=== PATIENT | female | born 2000 | race Caucasian/White ===

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

== ENCOUNTER 2020-01-19 14:55 | Emergency (ER) | payer MEDICAID ==
[~2020-01-19] VITALS: Ht 144.8 cm; Wt 65.0 kg
[2020-01-19 15:06] VITALS: BP 112/70
--- NOTE | 2020-01-19 15:21 | NUR ---
THIS IS A 19 YO F BIB [facility] AND [employer] FOR SA/SI. PT HAS MULTIPLE SUPERFICIAL LACERATIONS ON BILAT FOREARMS AND ABD. PT REPORTS SHE WAS NOT INVITED TO A FAMILY EVENT YESTERDAY WHICH TRIGGERED HER SI. PT LACERATED ARMS AND ABD THEN WENT TO WORK, WAS EMOTIONAL AT WORK SO THEY CALLED AMBULANCE. PT REPORTS LAST SA WAS 4 YEARS AGO IN WHICH SHE USED PILLS. PT DENIES CURRENT MEDS. PT RESTING ON [employer] W/ CALL LIGHT IN REACH, RESP EVEN AND UNLABORED, NADN. BELONGS REMOVED FROM PT AND PLACED IN SAFETY LOCKER. PT CHANGED INTO GOWN, GARAGE DOORS DOWN. SITTER OUTSIDE OF ROOM.
[2020-01-19 15:31] LABS: BASOPHILS # (AUTO) 0.02 x10^3/uL (0-0.3); BASOPHILS % (AUTO) 0 % (0-1); EOSINOPHILS # (AUTO) 0.05 x10^3/uL (0-0.8); EOSINOPHILS % (AUTO) 1 % (1-7); LYMPHOCYTES # (AUTO) 1.23 x10^3/uL (1-6.1); LYMPHOCYTES % (AUTO) 21 % (22-44); MD NO; MEAN CORPUSCULAR HEMOGLOBIN 31.8 pg (27.0-34.8); MEAN CORPUSCULAR VOLUME 93.3 fL (80-100); MEAN PLATELET VOLUME 8.3 fL (7.4-10.4); MONOCYTES # (AUTO) 0.33 x10^3/uL (0-1.4); MONOCYTES % (AUTO) 6 % (2-9); NEUTROPHILS # (AUTO) 4.13 x10^3/uL (1.8-8.0); NEUTROPHILS % (AUTO) 72 % (42-75); PLATELET COUNT 240 x10^3/uL (130-400); RED BLOOD COUNT 4.79 x10^6/uL (3.82-5.3); RED CELL DISTRIBUTION WIDTH 12.3 % (9.6-15.2)
[2020-01-19 15:44] LABS: ALBUMIN 4.1 g/dL (3.4-5.0); ANION GAP 8 mmol/L (5-15); CALCIUM 9.4 mg/dL (8.5-10.1); CHLORIDE 111 mmol/L (98-107); CREATININE 0.85 mg/dL (0.55-1.02)
[2020-01-19] MEDS ORDERED: NEOSPORIN OINT. PKT 1 PACKET ONE (15:44)
--- NOTE | 2020-01-19 15:46 | NUR ---
BRITT MCMANUS AT BEDSIDE.
[2020-01-19 15:49] LABS: SALICYLATE LEVEL < 1.7 mg/dL (2.8-20.0)
--- NOTE | 2020-01-19 15:53 | NUR ---
SAFETY MEAL TRAY PROVIDED FOR PATIENT.
[2020-01-19] MEDS ORDERED: DIPH,PERTUSS(ACELL),TET VAC/PF 0.5 ML IM-VACC ONE ×2 (16:00→16:44)
[2020-01-19 16:35] LABS: AMPHETAMINE SCREEN, URINE Negative (Negative); BARBITURATE SCREEN, URINE Negative (Negative); BENZODIAZEPINE SCREEN, URINE Negative (Negative); CANNABINOID SCREEN, URINE Positive (Negative); COCAINE SCREEN, URINE Negative (Negative); METHADONE SCREEN, URINE Negative (Negative); OPIATE SCREEN, URINE Negative (Negative)
--- NOTE | 2020-01-19 17:00 | NUR ---
PT RESTING ON GURNEY W/ FATHER AT BEDSIDE. RESP EVEN AND UNLABORED. NADN. AWAITING ADMIT.
--- NOTE | 2020-01-19 18:11 | NUR ---
PT RESTING ON GURNEY W/ FATHER AT BEDSIDE. SITTER OUTSIDE ROOM, GARAGE DOORS DOWN. RESP EVEN AND UNLABORED, NADN. AWAITING ADMIT.
--- NOTE | 2020-01-19 19:24 | NUR ---
pt resting on brandon, dad at her side, denies suicidal thoughts at this time, provided pt with ice chips per her request, denies further needs, room secured, sitter at doorway for continous monitoring
--- NOTE | 2020-01-19 20:06 | NUR ---
pt to be assisted to [facility], belongings bag x1 transferred with pt
== END 2020-01-19 20:09 | disposition home or self-care (01) ==
LOC: ED 15:43
DX: S51.819A Laceration without foreign body of unspecified forearm, initial encounter (principal); S31.119A Laceration without foreign body of abdominal wall, unspecified quadrant without penetration into peritoneal cavity, initial encounter; R45.851 Suicidal ideations; F32.9 Major depressive disorder, single episode, unspecified; Y33.XXXA Other specified events, undetermined intent, initial encounter; Y93.89 Activity, other specified; Y92.89 Other specified places as the place of occurrence of the external cause; Y99.8 Other external cause status
CPT/HCPCS: 36415; 80048; 80307; 82040; 84703; 85025; 90471; 90715; 99283; 99284

== ENCOUNTER 2020-01-19 16:50 | Inpatient (IN) | payer MEDICAID ==
[~2020-01-19] VITALS: Ht 144.8 cm; Wt 66.8 kg
[2020-01-19 20:00] VITALS: BP_SYST 111; BP_SYST 112; BP_DIAS 75; BP_DIAS 82
[2020-01-19] MEDS ORDERED: POLYETHYLENE GLYCOL 17 GM PACKET PO PRN (20:00)
[2020-01-19] MEDS ORDERED: BISACODYL 10 MG SUPP PR PRN (20:00)
[2020-01-19] MEDS ORDERED: DOCUSATE 100 MG CAPSULE PO PRN (20:00)
[2020-01-19] MEDS ORDERED: ONDANSETRON ODT 4 MG PO PRN (20:00)
[2020-01-19 20:30] LABS: ALBUMIN 4.1 g/dL (3.4-5.0); BILIRUBIN, DIRECT 0.2 mg/dL (0.1-0.2)
[2020-01-19] MEDS ORDERED: PLEASE ENTER HEIGHT AND WEIGHT MC SCH (20:30)
[2020-01-19 20:56] LABS: BILIRUBIN,INDIRECT 0.5 mg/dL (0.0-2.0); BILIRUBIN,TOTAL 0.7 mg/dL (0.2-1.0); CHOL/HDL RATIO 3.3; FREE T4 (FREE THYROXINE) 1.14 ng/dL (0.76-1.46); TOTAL PROTEIN 7.8 g/dL (6.4-8.2)
[2020-01-19 21:33] LABS: MICROSCOPIC INDICATED
[2020-01-19] MEDS: ACETAMINOPHEN 325 MG TABLET PO PRN (21:44)
[2020-01-20 00:10] VITALS: BP 111/75
[2020-01-20 07:55] VITALS: BP 94/65
[2020-01-20] MEDS: SERTRALINE 50MG TABLET PO SCH (18:08)
[2020-01-20 19:15] VITALS: BP_SYST 100; BP_SYST 180; BP_DIAS 64; BP_DIAS 69
[2020-01-20] MEDS: CARBAMAZEPINE 200 MG TABLET PO SCH (20:46)
[2020-01-20] MEDS: ACETAMINOPHEN 325 MG TABLET PO PRN (20:46)
[2020-01-21 07:00] VITALS: BP 110/73
[2020-01-21] MEDS: SERTRALINE 50MG TABLET PO SCH (09:05)
[2020-01-21 19:40] VITALS: BP 100/66
[2020-01-21] MEDS: ACETAMINOPHEN 325 MG TABLET PO PRN (20:58)
[2020-01-21] MEDS: CARBAMAZEPINE 200 MG TABLET PO SCH (20:58)
[2020-01-22 07:00] VITALS: BP 114/73
[2020-01-22] MEDS: SERTRALINE 50MG TABLET PO SCH (09:20)
[2020-01-22] MEDS: ACETAMINOPHEN 325 MG TABLET PO PRN (18:07)
[2020-01-22 20:00] VITALS: BP 105/70
[2020-01-22] MEDS: CARBAMAZEPINE 200 MG TABLET PO SCH (20:48)
[2020-01-23 07:40] VITALS: BP 114/75
[2020-01-23] MEDS: SERTRALINE 50MG TABLET PO SCH (08:26)
[2020-01-23 19:26] VITALS: BP 107/72
[2020-01-23] MEDS: CARBAMAZEPINE 200 MG TABLET PO SCH (20:20)
[2020-01-23 21:04] VITALS: BP 110/65
[2020-01-23 21:20] VITALS: BP 102/71
[2020-01-23 21:27] VITALS: BP 102/71
[2020-01-23] MEDS: ACETAMINOPHEN 325 MG TABLET PO PRN (21:29)
[2020-01-23 22:34] VITALS: BP 109/74
--- NOTE | 2020-01-23 22:49 | NUR ---
[place] GONZALEZ - Fall Risk Medications present and NOT receiving anticoagulants.
[2020-01-24 07:41] VITALS: BP 103/69
[2020-01-24] MEDS: ACETAMINOPHEN 325 MG TABLET PO PRN (08:46)
[2020-01-24] MEDS: hydrOXyzine 10MG TABLET PO PRN ×2 (08:46→16:36)
[2020-01-24] MEDS: SERTRALINE 50MG TABLET PO SCH (08:46)
[2020-01-24 19:15] VITALS: BP 107/72
[2020-01-24] MEDS: CARBAMAZEPINE 200 MG TABLET PO SCH (20:29)
[2020-01-25 07:25] VITALS: BP 106/70
[2020-01-25] MEDS: SERTRALINE 50MG TABLET PO SCH (08:26)
[2020-01-25] MEDS: hydrOXyzine 10MG TABLET PO PRN ×2 (08:26→20:36)
[2020-01-25] MEDS ORDERED: HYDR-2995 PO (13:49)
[2020-01-25] MEDS ORDERED: SERT50TA28 PO (13:49)
[2020-01-25] MEDS ORDERED: CARB200T4 PO (13:49)
[2020-01-25 19:15] VITALS: BP 97/68
[2020-01-25] MEDS: CARBAMAZEPINE 200 MG TABLET PO SCH (20:36)
[2020-01-26 07:43] VITALS: BP 107/71
[2020-01-26] MEDS: ACETAMINOPHEN 325 MG TABLET PO PRN (08:55)
[2020-01-26] MEDS: SERTRALINE 50MG TABLET PO SCH (08:55)
[2020-01-26] MEDS: hydrOXyzine 10MG TABLET PO PRN (09:08)
== END 2020-01-26 12:58 | disposition home or self-care (01) | DRG 753 ==
LOC: 3E 20:17
PROVIDERS: ADMIT Psychiatry & Neurology Psychosomatic Medicine; ATTEND Psychiatry & Neurology Psychosomatic Medicine
DX: F31.60 Bipolar disorder, current episode mixed, unspecified (principal); E66.9 Obesity, unspecified; F12.10 Cannabis abuse, uncomplicated; F63.9 Impulse disorder, unspecified; F90.9 Attention-deficit hyperactivity disorder, unspecified type; Z63.9 Problem related to primary support group, unspecified; Z82.0 Family history of epilepsy and other diseases of the nervous system; Z91.5 Personal history of self-harm; Z68.31 Body mass index [BMI] 31.0-31.9, adult; Z79.899 Other long term (current) drug therapy
CPT/HCPCS: 36415; 71045; 80048; 80061; 80076; 80307; 81001; 82040; 82607; 84439; 84443; 84703; 85025; 87086; 90471; 90715; 93005; 99283

== ENCOUNTER 2020-02-24 21:27 | Emergency (ER) | payer MEDICAID ==
[~2020-02-24] VITALS: Ht 144.8 cm; Wt 67.9 kg
[~2020-02-24 21:27] MED LIST changes: +CARB200T4 PO; +HYDR-2995 PO; +SERT50TA28 PO
--- NOTE | 2020-02-24 22:10 | NUR ---
Patient presents to ER c/o cough, fever, and congestion x2 weeks. Patient also c/o LLQ abd pain that started today. Denies N/V/D. LMP 02/19/20. Patient is in NAD. Respirations even and unlabored.
[2020-02-24 22:15] LABS: MICROSCOPIC INDICATED
[2020-02-24 22:30] LABS: BASOPHILS # (AUTO) 0.01 x10^3/uL (0-0.3); BASOPHILS % (AUTO) 0 % (0-1); EOSINOPHILS # (AUTO) 0.14 x10^3/uL (0-0.8); EOSINOPHILS % (AUTO) 1 % (1-7); LYMPHOCYTES # (AUTO) 1.36 x10^3/uL (1-6.1); LYMPHOCYTES % (AUTO) 13 % (22-44); MD NO; MEAN CORPUSCULAR HEMOGLOBIN 30.7 pg (27.0-34.8); MEAN CORPUSCULAR HGB CONC 33.7 g/dL (32.4-35.8); MEAN CORPUSCULAR VOLUME 91.1 fL (80-100); MEAN PLATELET VOLUME 8.2 fL (7.4-10.4); MONOCYTES # (AUTO) 0.84 x10^3/uL (0-1.4); MONOCYTES % (AUTO) 8 % (2-9); NEUTROPHILS # (AUTO) 8.07 x10^3/uL (1.8-8.0); NEUTROPHILS % (AUTO) 77 % (42-75); PLATELET COUNT 245 x10^3/uL (130-400); RED BLOOD COUNT 4.52 x10^6/uL (3.82-5.3); RED CELL DISTRIBUTION WIDTH 12.4 % (9.6-15.2)
[2020-02-24 22:38] LABS: ALBUMIN 3.5 g/dL (3.4-5.0); ANION GAP 4 mmol/L (5-15); CALCIUM 8.9 mg/dL (8.5-10.1); CHLORIDE 106 mmol/L (98-107)
[2020-02-24 22:44] LABS: ALANINE AMINOTRANSFERASE 19 U/L (12-78); ALKALINE PHOSPHATASE 68 U/L (45-117); BILIRUBIN,TOTAL 0.4 mg/dL (0.2-1.0); CREATININE 1.11 mg/dL (0.55-1.02); TOTAL PROTEIN 7.6 g/dL (6.4-8.2)
[2020-02-24 23:14] VITALS: BP 116/67
== END 2020-02-24 23:15 | disposition home or self-care (01) ==
LOC: ED 21:45
DX: N30.00 Acute cystitis without hematuria (principal); R10.32 Left lower quadrant pain; R10.31 Right lower quadrant pain; R05 Cough; R50.9 Fever, unspecified
CPT/HCPCS: 36415; 74022; 80053; 81001; 83690; 84703; 85025; 87077; 87086; 87186; 99284

== ENCOUNTER 2020-02-28 12:38 | Emergency (ER) | payer MEDICAID ==
[~2020-02-28] VITALS: Ht 144.8 cm; Wt 65.8 kg
--- NOTE | 2020-02-28 13:16 | NUR ---
AEROGRAPHER: PT AMBULATORY TO ROOM FROM LOBBY
[2020-02-28 13:58] LABS: ALANINE AMINOTRANSFERASE 20 U/L (12-78); ALBUMIN 3.3 g/dL (3.4-5.0); ANION GAP 5 mmol/L (5-15); CALCIUM 8.8 mg/dL (8.5-10.1); CHLORIDE 109 mmol/L (98-107); CREATININE 0.91 mg/dL (0.55-1.02)
[2020-02-28] MEDS ORDERED: ACETAMINOPHEN 500 MG TABLET ONE (13:58)
[2020-02-28 14:00] LABS: ALKALINE PHOSPHATASE 66 U/L (45-117); BILIRUBIN,TOTAL 0.3 mg/dL (0.2-1.0); TOTAL PROTEIN 7.5 g/dL (6.4-8.2)
[2020-02-28] MEDS ORDERED: ACETAMINOPHEN 500 MG TABLET PO ONE (14:00)
[2020-02-28 14:16] LABS: MEAN CORPUSCULAR HEMOGLOBIN 30.9 pg (27.0-34.8); MEAN CORPUSCULAR HGB CONC 33.6 g/dL (32.4-35.8); MEAN CORPUSCULAR VOLUME 92.1 fL (80-100); MEAN PLATELET VOLUME 7.9 fL (7.4-10.4); PLATELET COUNT 231 x10^3/uL (130-400); RED CELL DISTRIBUTION WIDTH 12.3 % (9.6-15.2)
--- NOTE | 2020-02-28 14:26 | NUR ---
samantha hua, maureen sent. as
[2020-02-28] MEDS ORDERED: SODIUM CHLORIDE FLUSH 10ML SYR IVF ONE (14:30)
[2020-02-28 14:32] LABS: BASOPHILS # (AUTO) 0.01 x10^3/uL (0-0.3); BASOPHILS % (AUTO) 0 % (0-1); EOSINOPHILS # (AUTO) 0.18 x10^3/uL (0-0.8); EOSINOPHILS % (AUTO) 4 % (1-7); LYMPHOCYTES % (AUTO) 25 % (22-44); MD SCAN; MONOCYTES # (AUTO) 0.47 x10^3/uL (0-1.4); MONOCYTES % (AUTO) 11 % (2-9); NEUTROPHILS # (AUTO) 2.62 x10^3/uL (1.8-8.0); NEUTROPHILS % (AUTO) 60 % (42-75)
[2020-02-28 14:33] LABS: MICROSCOPIC INDICATED
--- NOTE | 2020-02-28 15:26 | NUR ---
PIV EST PLAN FOR CT.
[2020-02-28] MEDS ORDERED: OMNIPAQUE 350 MG/ML, 100ML BOTTLE ONE (15:40)
[2020-02-28] MEDS ORDERED: DIPHENHYDRAMINE 50 MG/ML, 1ML ONE (16:01)
[2020-02-28] MEDS ORDERED: HYDROCORTISONE 100 MG INJ. ONE (16:01)
[2020-02-28] MEDS ORDERED: methylPREDNISolone SOD SUCC 125 MG/2 ML ONE (16:01)
--- NOTE | 2020-02-28 16:11 | NUR ---
ALLERGIC RX TO CONTRAST. PT RED/WELTS OVER BODY, STS SOME TROUBLE BREATHING. RANDAL NOTIFIED. 100 MG SOLUMEDROL IV, 25 MG BENADRYL IV PER VERBAL ORDER. ON NRB. LUNGS CTAB, THROAT CLEAR, NO TONGUE SWELLING. RN IN ROOM TO MONITOR.
[2020-02-28] MEDS ORDERED: methylPREDNISolone SOD SUCC 40 MG/ML IV STA (16:13)
[2020-02-28] MEDS ORDERED: DIPHENHYDRAMINE 50 MG/ML, 1ML IV STA (16:13)
--- NOTE | 2020-02-28 16:16 | NUR ---
PT ALREADY IMPROVING AFTER MEDS. WELTS IMPROVING. STS SLIGHTLY LESS ITCHY. STS THROAT IS LESS ITCHY. VSS.
--- NOTE | 2020-02-28 16:21 | NUR ---
RANDAL IN ROOM. PLAN FOR ABX AND CONT TO MONITOR. THEN DC HOME ON ABX. PT AGREES W POC.
[2020-02-28] MEDS ORDERED: CEFTRIAXONE PMX 1GM/50ML 50 ML ONE (16:25)
[2020-02-28] MEDS ORDERED: DIPHENHYDRAMINE 50 MG/ML, 1ML IVPush ONE (16:30)
[2020-02-28] MEDS ORDERED: methylPREDNISolone SOD SUCC 125 MG/2 ML IV ONE (17:00)
[2020-02-28] MEDS ORDERED: CEFTRIAXONE PMX 1GM/50ML 50 ML IV ONE (17:00)
[2020-02-28 18:06] VITALS: BP 101/59
== END 2020-02-28 18:08 | disposition home or self-care (01) ==
LOC: ED 15:50
DX: N10 Acute pyelonephritis (principal); N30.00 Acute cystitis without hematuria; R00.0 Tachycardia, unspecified
CPT/HCPCS: 36415; 74177; 80053; 81001; 84703; 85025; 87086; 96365; 96368; 96375; 99285; J0696; J2930; Q9967